=== PATIENT | male | born 1990 | race Caucasian/White ===

== ENCOUNTER 2016-10-26 10:12 | Emergency (ER) | payer MEDICAID, OTHER ==
[~2016-10-26] VITALS: Ht 165.1 cm; Wt 56.7 kg
[2016-10-26] MEDS ORDERED: KETAMINE HCL 50 MG/ML 10ML VIAL IM ONE ×3 (10:45→12:45)
[2016-10-26] MEDS ORDERED: KETAMINE HCL 1 ML ONE (11:05)
[2016-10-26 16:15] VITALS: BP 126/88
== END 2016-10-26 16:28 | disposition home or self-care (01) ==
LOC: EDBD 10:12 → ER 10:12
DX: S01.81XA Laceration without foreign body of other part of head, initial encounter (principal); G80.9 Cerebral palsy, unspecified; R41.82 Altered mental status, unspecified; Z88.8 Allergy status to other drugs, medicaments and biological substances; G40.909 Epilepsy, unspecified, not intractable, without status epilepticus; W18.39XA Other fall on same level, initial encounter; Y93.89 Activity, other specified; Y92.89 Other specified places as the place of occurrence of the external cause; Y99.8 Other external cause status
CPT/HCPCS: 12014; 12053; 99152

== ENCOUNTER 2018-01-05 17:04 | Observation (INO) | payer MEDICAID ==
[~2018-01-05] VITALS: Ht 172.7 cm; Wt 54.4 kg
[2018-01-05] MEDS ORDERED: CLOR7.5T3 PO (17:32)
[2018-01-05] MEDS ORDERED: LACO50TA2 PO (17:32)
[2018-01-05] MEDS ORDERED: LIDOCAINE 2% (LOCAL ANESTH.) PF 5ml SDV ONE (18:42)
[2018-01-05] MEDS ORDERED: MIDAZOLAM HCL 5 MG/ML-1ML VIAL ONE (18:47)
[2018-01-05] MEDS ORDERED: MIDAZOLAM HCL 1MG/1ML-2 ML VIAL IV ONE ×2 (19:00→21:00)
[2018-01-05] MEDS ORDERED: cefTRIAXone 1GM/10ml IVPUSH 10 ML IV ONE ×2 (19:30)
[2018-01-05] MEDS ORDERED: ETOMIDATE (2MG/ML) 20ML VIAL IV ONE ×2 (20:37→20:45)
[2018-01-05 21:38] VITALS: BP 124/87
[2018-01-05] MEDS ORDERED: BACITRACIN TOP OINT 1 UD PKG TOP ONE (21:52)
== END 2018-01-05 22:20 | disposition home or self-care (01) | DRG 82 ==
LOC: EDUNIT# 17:04 → EDBD 17:04 → ER 17:04 → OVERFLOW 17:05 → ER 22:20
PROVIDERS: ADMIT Family Medicine; ATTEND Family Medicine
DX: S01.112A Laceration without foreign body of left eyelid and periocular area, initial encounter (principal); G40.909 Epilepsy, unspecified, not intractable, without status epilepticus; G80.8 Other cerebral palsy; W22.8XXA Striking against or struck by other objects, initial encounter; Y93.89 Activity, other specified; Y92.89 Other specified places as the place of occurrence of the external cause; Y99.8 Other external cause status
CPT/HCPCS: 12013; 70450; 70480; 96374; 96375; 99285; G0378; J0696; J2001; J2250

== ENCOUNTER → 2019-12-27 | Emergency (ER) | payer MEDICAID ==
[~2019-12-27] VITALS: Ht 157.5 cm; Wt 63.5 kg
[~2019-12-27] MED LIST: CLOR7.5T3 PO; GLYCOPYRROLATE 0.2 MG/ML 1ML VIAL IM ONE; GLYCOPYRROLATE 0.2 MG/ML 1ML VIAL IV ONE; KETAMINE 50mg/ML 10ml Vial (500mg/10ml) IM ONE; KETAMINE 50mg/ML 10ml Vial (500mg/10ml) IV ONE; LACO50TA2 PO; MIDAZOLAM HCL 1MG/1ML-2 ML VIAL IM ONE
[2019-12-27 21:00] VITALS: BP 117/74
== END | disposition home or self-care (01) ==
LOC: EDUNIT# 17:25 → ER 17:35 → EDBD 17:35
DX: S01.01XA Laceration without foreign body of scalp, initial encounter (principal); W19.XXXA Unspecified fall, initial encounter; Y93.89 Activity, other specified; Y92.89 Other specified places as the place of occurrence of the external cause; Y99.8 Other external cause status
CPT/HCPCS: 96372; 99284; J2250